=== PATIENT | female | born 1995 | race Caucasian/White ===

== ENCOUNTER → 2018-08-10 | Outpatient (CLI) | payer BC ==
[2018-08-13 01:08] LABS: CHLAMYDIA TRACHOMATIS, NAA Negative (Negative)
[2018-08-13 07:09] LABS: HPV 16 Negative (Negative); HPV 18 Negative (Negative); HPV OTHER HR TYPES Negative (Negative); NEISSERIA GONORRHOEAE, NAA Negative (Negative)
== END | disposition home or self-care (01) ==
LOC: LAB 17:30 → LAB SHORT 17:30
PROVIDERS: Nurse Practitioner Women's Health
DX: Z11.3 Encounter for screening for infections with a predominantly sexual mode of transmission (principal); Z12.4 Encounter for screening for malignant neoplasm of cervix
CPT/HCPCS: 87491; 87591; 87624; G0123

== ENCOUNTER 2020-05-04 05:57 | Day surgery (SDC) | payer BC ==
[2020-05-03 17:55] LABS: BASOPHILS ABSOLUTE AUTO 0.03 K/mm3 (0.00-0.23); BASOPHILS PERCENT AUTO 0 % (0-2); EOSINOPHILS ABSOLUTE AUTO 0.08 K/mm3 (0.00-0.68); EOSINOPHILS PERCENT AUTO 1 % (0-6); Hematocrit 42.7 % (33.0-51.0); Hemoglobin 13.9 g/dL (11.5-16.0); IMMATURE GRAN ABSOLUTE AUTO 0.03 K/mm3 (0.00-0.10); IMMATURE GRAN PERCENT AUTO 0 % (0-1); LYMPHOCYTES ABSOLUTE AUTO 2.94 K/mm3 (0.84-5.20); LYMPHOCYTES PERCENT AUTO 35 % (21-46); MONOCYTES ABSOLUTE AUTO 0.28 K/mm3 (0.16-1.47); MONOCYTES PERCENT AUTO 3 % (4-13); Mean Corpuscular HGB 30.1 pg (26.0-34.0); Mean Corpuscular HGB Conc 32.6 g/dL (31.5-36.5); Mean Corpuscular Volume 92 fL (80-100); Mean Platelet Volume 10.6 fL (9.1-12.4); NEUTROPHILS ABSOLUTE AUTO 5.02 K/mm3 (1.96-9.15); NEUTROPHILS PERCENT AUTO 60 % (41-73); Platelet Count 260 K/mm3 (150-400); RDW Coefficient Variation 11.9 % (11.7-14.2); RDW Standard Deviation 39.9 fL (35.1-46.3); Red Blood Cell Count 4.62 M/mm3 (3.80-5.20); White Blood Cell Count 8.38 K/mm3 (4.00-11.30)
[~2020-05-04] VITALS: Ht 160 cm; Wt 93.0 kg
[~2020-05-04 05:57] MED LIST: DOCU100 PO; PRENATAL TABLE1 EAC2 PO; SLOW FE142 M1 PO
[2020-05-04] MEDS ORDERED: NEXPLANON68 MG SQ (06:29)
--- NOTE | 2020-05-04 10:46 | NUR ---
ADMISSION PT ARRIVED TO UNIT AT APROX 1030 FROM PACU, TRANSFERED FROM [facility] TO BED. TRANSVERSE INCISION C/D/I. DENIES PAIN AT THIS TIME. PT ALSO DENIES N/V, GIVEN CLEAR LIQUIDS.
--- NOTE | 2020-05-04 11:06 | NUR ---
ON ADMISSION HISTORY PT REPORTS SHE HAD ALL CHILDHOOD VACCINES PER THE RECOMMENDED SCHEDULE BUT DOES NOT KNOW THE DATES SHE RECEIVED THEM
--- NOTE | 2020-05-04 17:55 | NUR ---
summary pt reports pain level 1 to abdomen.denies nausea. pt has been up to bathroom to void clear yellow output. bayron pad without drainage. trey po food. pt wishes to discharge this evening and wonderly aware and will round on patient
[2020-05-04] MEDS ORDERED: DOCU100 PO (18:11)
[2020-05-04] MEDS ORDERED: DULCOLAX400 MG/5 M PO (18:12)
[2020-05-04] MEDS ORDERED: SENN187 PO (18:12)
[2020-05-04] MEDS ORDERED: SIME80CH PO (18:13)
--- NOTE | 2020-05-04 18:43 | NUR ---
DISCHARGED TO HOME WITH . PT DECLINE PRESCRIPTION FOR PAIN MEDS AND DR LANTIGUA WROTE ON DISCHARGE MEDS BUT DID NOT WRITE A PRESCRIPTION FOR
== END 2020-05-04 18:47 | disposition home or self-care (01) ==
LOC: ORSCMMR 05:57 → SURS 07:30 → EDSTATUS 07:30 → SURS 10:40 → ORSCMMR 18:47 → SURS 18:47
PROVIDERS: Obstetrics & Gynecology
PROC: 0UB00ZZ Excision of Right Ovary, Open Approach (ICD-10-PCS; principal; 2020-05-04 07:30)
DX: D27.0 Benign neoplasm of right ovary (principal); G43.909 Migraine, unspecified, not intractable, without status migrainosus; F41.1 Generalized anxiety disorder
CPT/HCPCS: 36415; 84702; 85025; 86850; 86900; 86901; 88307; 88311; J0330; J0690; J1885; J2250; J2405; J2704; J2710; J3010; J7120

== ENCOUNTER 2023-03-16 12:49 | Observation (INO) | payer BC ==
[2023-03-16] VITALS (10 sets, daily range): BP systolic 109–129; BP diastolic 69–89
[~2023-03-16] VITALS: Ht 160 cm; Wt 90.7 kg
[~2023-03-16 12:49] MED LIST changes: +DULCOLAX400 MG/5 M PO; +NEXPLANON68 MG SQ; +SENN187 PO; +SIME80CH PO
[2023-03-16 13:23] LABS: BASOPHILS ABSOLUTE AUTO 0.02 K/mm3 (0.00-0.23); BASOPHILS PERCENT AUTO 0 % (0-2); EOSINOPHILS ABSOLUTE AUTO 0.06 K/mm3 (0.00-0.68); EOSINOPHILS PERCENT AUTO 1 % (0-6); Hematocrit 40.6 % (33.0-51.0); Hemoglobin 13.3 g/dL (11.5-16.0); IMMATURE GRAN ABSOLUTE AUTO 0.02 K/mm3 (0.00-0.10); IMMATURE GRAN PERCENT AUTO 0 % (0-1); LYMPHOCYTES ABSOLUTE AUTO 1.35 K/mm3 (0.84-5.20); LYMPHOCYTES PERCENT AUTO 15 % (21-46); MONOCYTES ABSOLUTE AUTO 0.25 K/mm3 (0.16-1.47); MONOCYTES PERCENT AUTO 3 % (4-13); Mean Corpuscular HGB 30.2 pg (26.0-34.0); Mean Corpuscular HGB Conc 32.8 g/dL (31.5-36.5); Mean Corpuscular Volume 92 fL (80-100); NEUTROPHILS ABSOLUTE AUTO 7.64 K/mm3 (1.96-9.15); NEUTROPHILS PERCENT AUTO 82 % (41-73); Platelet Count 254 K/mm3 (150-400); RDW Coefficient Variation 12.3 % (11.7-14.2); RDW Standard Deviation 41.9 fL (35.1-46.3); Red Blood Cell Count 4.41 M/mm3 (3.80-5.20); White Blood Cell Count 9.34 K/mm3 (4.00-11.30)
[2023-03-16 13:36] LABS: Source, Urine Voided
[2023-03-16 13:39] LABS: Appearance, Urine Clear (Clear); Bilirubin, Urine Neg (Neg); Blood, Urine 4+ (Neg); Color, Urine Yellow (P-Yellow); Glucose Qualitative, Urine Neg (Neg); Ketones, Urine Neg (Neg); Leukocyte Esterase, Urine Neg (Neg); Nitrite, Urine Neg (Neg); Protein, Urine Neg (Neg); Urobilinogen, Urine NORM (Normal)
[2023-03-16 13:54] LABS: Albumin, Blood 3.6 g/dL (3.4-5.0); Bilirubin, Total 0.6 mg/dL (0.1-1.0); Bun/Creatinine Ratio 13.6 (12.0-20.0); Calcium, Blood 8.7 mg/dL (8.5-10.1); Creatinine, Blood 0.96 mg/dL (0.40-1.00); Globulin, Blood 3.7 g/dL (2.2-4.0); Potassium, Blood 3.8 mmol/L (3.5-5.5); Total Protein, Blood 7.3 g/dL (6.4-8.2)
[2023-03-16 14:09] LABS: Bacteria Few /hpf; Squamous Epithelial Cells Few /hpf (Few); White Blood Cells, Urine 0-2 /hpf (0-5)
--- NOTE | 2023-03-16 17:07 | NUR ---
03/16/23 1707 [place] NO PREOP ANTIBIOTICS PER .
[2023-03-16] MEDS ORDERED: Percocet 5-3251 EACH PO (20:36)
[2023-03-16] MEDS ORDERED: IBU800 MG PO (20:36)
--- NOTE | 2023-03-16 20:58 | NUR ---
DISCHARGE NOTE PT EDUCATED ABOUT POST OP INSTRUCTION OF AN EPTOPIC ISIS. VSS. PT ABLE TO AMBULATE W/ W/O DIZZINESS OR LIGHTHEADEDNESS. PT TOLLERATING PO INTAKE W/O N/V. VOIDING W/O DIFFICULTY. REPORTS VAGINNAL BLEEDING "SPOTTING" AND LIGHT. PT REPORTS HER MENSES IS STARTING SOON. PT DID NOT REQUIRE ANY PAIN MEDICATION. TWO IV'S REMOVED FROM RUE. PT WHEELED OUT OF FACILTY BY [employer] RETURNER. NO FURTHER QUESTIONS OR PROBLEMS IDENTIFIED BY PT OR
== END 2023-03-16 20:54 | disposition home or self-care (01) ==
LOC: ER 12:49 → SURS 12:50 → ER 16:10 → SURS 18:23
PROVIDERS: Emergency Medicine; Physician Assistant; ADMIT Obstetrics & Gynecology
PROC: 10D24ZZ Extraction of Products of Conception, Ectopic, Percutaneous Endoscopic Approach (ICD-10-PCS; principal; 2023-03-16 16:00)
DX: O00.112 Left tubal pregnancy with intrauterine pregnancy (principal); Z72.0 Tobacco use
CPT/HCPCS: 76815; 76817; 80053; 81001; 84702; 85025; 88305; 99285-25; J1100; J1885; J2250; J2405; J2704; J3010

== ENCOUNTER 2024-06-14 07:02 | Inpatient (IN) | payer BC ==
[2024-06-14] VITALS (12 sets, daily range): BP systolic 108–139; BP diastolic 59–88
[~2024-06-14 07:02] MED LIST changes: +IBU800 MG PO; +Percocet 5-3251 EACH PO
[2024-06-14] MEDS ORDERED: Oxytocin 10 Unit / ML Vial IM PRN (07:35)
[2024-06-14] MEDS ORDERED: Carboprost Tromethamine 250 MCG/ML 1ML Amp IM PRN ×2 (07:35→13:10)
[2024-06-14] MEDS ORDERED: Lactated Ringer's 1,000 ML IV SCH ×5 (07:35→13:10)
[2024-06-14] MEDS ORDERED: Misoprostol 200 MCG Tab BC PRN (07:35)
[2024-06-14] MEDS ORDERED: Ondansetron HCl 2 MG / ML 2ML Vial IV PRN (07:35)
[2024-06-14] MEDS ORDERED: Acetaminophen 500 MG Tab PO PRN (07:35)
[2024-06-14] MEDS ORDERED: FentaNYL 2mcg/ml-Bup 0.1% Epd 250 ML EPI PRN (07:35)
[2024-06-14] MEDS ORDERED: Methylergonovine Maleate 0.2MG / ML 1ML Amp IM PRN ×2 (07:35→13:10)
[2024-06-14] MEDS ORDERED: OXYTOCIN/RINGER'S LACTATE 500 ML IV PRN (07:35)
[2024-06-14] MEDS ORDERED: Misoprostol 200 MCG Tab PR PRN ×2 (07:35→13:10)
[2024-06-14] MEDS ORDERED: Lactated Ringer's 1,000 ML IV PRN (07:35)
[2024-06-14] MEDS ORDERED: ePHEDrine Sulfate 50 MG/ML 1ML Injection XX PRN (07:35)
[2024-06-14] MEDS ORDERED: Calcium Carbonate 500 MG Tab Chew PO PRN (07:40)
[2024-06-14] MEDS ORDERED: Tranexamic Acid 100 ML IV SCH ×2 (07:45→13:10)
[2024-06-14] MEDS ORDERED: OXYTOCIN/RINGER'S LACTATE 500 ML IV SCH (07:45)
[2024-06-14] MEDS ORDERED: FentaNYL Citrate 50 MCG/ML 2 ML Injection IV PRN (07:50)
[2024-06-14 07:57] LABS: BASOPHILS ABSOLUTE AUTO 0.02 K/mm3 (0.00-0.23); BASOPHILS PERCENT AUTO 0 % (0-2); EOSINOPHILS ABSOLUTE AUTO 0.06 K/mm3 (0.00-0.68); EOSINOPHILS PERCENT AUTO 1 % (0-6); Hematocrit 37.5 % (33.0-51.0); Hemoglobin 12.9 g/dL (11.5-16.0); IMMATURE GRAN ABSOLUTE AUTO 0.04 K/mm3 (0.00-0.10); IMMATURE GRAN PERCENT AUTO 1 % (0-1); LYMPHOCYTES ABSOLUTE AUTO 1.74 K/mm3 (0.84-5.20); LYMPHOCYTES PERCENT AUTO 22 % (21-46); MONOCYTES ABSOLUTE AUTO 0.25 K/mm3 (0.16-1.47); MONOCYTES PERCENT AUTO 3 % (4-13); Mean Corpuscular HGB 30.9 pg (26.0-34.0); Mean Corpuscular HGB Conc 34.4 g/dL (31.5-36.5); Mean Corpuscular Volume 90 fL (80-100); Mean Platelet Volume 11.2 fL (9.1-12.4); NEUTROPHILS ABSOLUTE AUTO 5.91 K/mm3 (1.96-9.15); NEUTROPHILS PERCENT AUTO 74 % (41-73); Platelet Count 233 K/mm3 (150-400); RDW Coefficient Variation 14.5 % (11.7-14.2); RDW Standard Deviation 47.1 fL (35.1-46.3); Red Blood Cell Count 4.18 M/mm3 (3.80-5.20); White Blood Cell Count 8.02 K/mm3 (4.00-11.30)
[2024-06-14] MEDS ORDERED: Docusate Sodium 100 MG Cap PO PRN (13:10)
[2024-06-14] MEDS ORDERED: OXYTOCIN/RINGER'S LACTATE 500 ML IV ONE (13:10)
[2024-06-14] MEDS ORDERED: Acetaminophen 325 MG TABLET PO PRN (13:10)
[2024-06-14] MEDS ORDERED: Witch Hazel/Glycerin PADS TOP PRN (13:10)
[2024-06-14] MEDS ORDERED: Ibuprofen 400 MG Tab PO PRN (13:10)
[2024-06-14] MEDS ORDERED: Lanolin Cream TOP PRN (13:10)
[2024-06-14] MEDS ORDERED: Ketorolac Tromethamine 30mg Vial IV PRN (13:10)
[2024-06-14] MEDS ORDERED: Benzocaine Topical Anesthetic Spray 60GM TOP PRN (13:10)
[2024-06-15 05:02] VITALS: BP 119/80
[2024-06-15 06:35] LABS: Hematocrit 35.4 % (33.0-51.0); Mean Corpuscular HGB Conc 33.9 g/dL (31.5-36.5); Mean Corpuscular Volume 92 fL (80-100); Mean Platelet Volume 10.9 fL (9.1-12.4); Platelet Count 217 K/mm3 (150-400); RDW Coefficient Variation 14.5 % (11.7-14.2); RDW Standard Deviation 48.3 fL (35.1-46.3); Red Blood Cell Count 3.87 M/mm3 (3.80-5.20); White Blood Cell Count 11.85 K/mm3 (4.00-11.30)
[2024-06-15 07:26] VITALS: BP 110/56
[2024-06-15] MEDS ORDERED: Prenatal Vit/FE Fumarate/FA 1 Tab PO SCH (09:00)
[2024-06-15 14:19] VITALS: BP 115/82
== END 2024-06-15 14:35 | disposition home or self-care (01) | DRG 807 ==
LOC: OBS 07:02 → BC 07:05 → OBS 07:12 → BC 07:12
PROVIDERS: ADMIT Obstetrics & Gynecology
PROC: 10E0XZZ Delivery of Products of Conception, External Approach (ICD-10-PCS; principal; 2024-06-14)
PROC: 0HQ9XZZ Repair Perineum Skin, External Approach (ICD-10-PCS; 2024-06-14)
PROC: 10907ZC Drainage of Amniotic Fluid, Therapeutic from Products of Conception, Via Natural or Artificial Opening (ICD-10-PCS; 2024-06-14)
PROC: 3E033VJ Introduction of Other Hormone into Peripheral Vein, Percutaneous Approach (ICD-10-PCS; 2024-06-14)
DX: O62.3 Precipitate labor (principal); Z37.0 Single live birth; O69.81X0 Labor and delivery complicated by cord around neck, without compression, not applicable or unspecified; O70.0 First degree perineal laceration during delivery; Z3A.39 39 weeks gestation of pregnancy
CPT/HCPCS: 36415; 85025; 85027; 86850; 86900; 86901; A9270; J1885; J2405; J2590; J3010